=== PATIENT | female | born 1980 | race Caucasian/White ===

== ENCOUNTER 2021-03-27 00:29 | Emergency (ER) | payer OTHER ==
[~2021-03-27] VITALS: Ht 162 cm; Wt 80.0 kg
[~2021-03-27 00:29] MED LIST: CLOMID; LOPE2TAB48 PO; ONDA-42 SL; OSLT75C PO
--- NOTE | 2021-03-27 01:29 | ED Lower Extremity ---
General Chief Complaint: Lower Extremity Stated Complaint: RT ANKLE PAIN Nursing Triage Note: TO ED VIA POV AND W/C TO ROOM 7 WITH C/O RIGHT ANKLE PAIN AFTER TRIPPING DOWN STEPS IN GARAGE AND TURNING ANKLE. PT PRESENTS WITH RIGHT ANKLE CHENG WRAPPED AND ICE PACK. Source: patient History of Present Illness Date Seen by Provider: Mar 27, 2021 Time Seen by Provider: 01:05 Initial Comments PT ARRIVES VIA POV FROM HOME STATES AROUND 2330 TONIGHT, SHE WAS GOING DOWN 2 STEPS INTO GARAGE--GETTING READY TO GO TO WORK--AND TWISTED RIGHT ANKLE/INVERSION-TYPE INJURY WAS WEARING FLAT, THIN SOLED, FABRIC MULES DID NOT HAVE ANY OTHER INJURIES FROM THE INCIDENT NO PARESTHESIAS OR MOTOR DEFICITS HAD MINOR SPRAIN TO THIS ANKLE 6 MONTHS AGO, NO PROBLEMS SINCE THEN ARRIVES WITH ANKLE WRAPPED WITH AN CHENG WRAP AND ICE PACK IN PLACE HAS NOT TAKEN ANYTHING FOR PAIN LMP 2 1/2 WEEKS AGO. NORMAL. NO CONTROL. DENIES POSSIBILITY OF . PCP: DR. FRASER Allergies and Home Medications Allergies Coded Allergies: codeine phosphate (Unverified Allergy, Unknown, 09/06/13) propoxyphene napsylate (Unverified Adverse Reaction, Unknown, 09/06/13) Patient Home Medication List Home Medication List Reviewed: Yes Loperamide Hcl (Ultra A-D) 2 Mg Tablet, 2 MG PO UD Prescribed by: SVETA POSEY on 09/06/13 1540 Naproxen (Naproxen) 500 Mg Tablet.dr, 500 MG PO BID Prescribed by: RAUL SORENSEN on 03/27/21 0203 Ondansetron Hcl (Zofran Oral Dissolve) 4 Mg Tab, 4-8 MG SL Q4H Prescribed by: SVETA POSEY on 09/06/13 1540 [Clomid] , (Reported) Entered as Reported by: TIFFANIE FISH on 09/06/13 1357 Review of Systems Constitutional: no symptoms reported Musculoskeletal: see HPI Skin: no symptoms reported Psychiatric/Neurological: No Symptoms Reported Past Cprwwgk-Qabqig-Stvsnz Hx Patient Social History Tobacco Use?: No Substance use?: No Alcohol Use?: No Immunizations Up To Date COVID19 Vaccine [employer] Rug [employer]ter: MODERNA Past Medical History Surgery/Hospitalization HX: ANXIETY DEPRESSION HIGH CHOLESTEROL Surgeries: No Respiratory: Yes Asthma Cardiac: Yes High Cholesterol Neurological: No : No Genitourinary: No Gastrointestinal: No Musculoskeletal: No Endocrine: No HEENT: No Cancer: No Psychosocial: Yes Anxiety, Depression Integumentary: No Blood Disorders: No Physical Exam Vital Signs Vital Signs - First Documented 03/27/21 00:48 Temp 36.4 Pulse 86 Resp 16 B/P (MAP) 122/72 (89) Pulse Ox 98 O2 Delivery Room Air Capillary Refill : Less Than 3 Seconds Height, Weight, BMI Height: 5'3.00" Weight: 155lbs. oz. 70.976443oi; 30.00 BMI Method:Stated General Appearance: WD/WN, no apparent distress Legs: right leg normal inspection Knees: right knee normal inspection Ankles: right ankle other (TENDERNESS AND SLIGHT SWELLING ALL AROUND ANKLE--ESPECIALLY ANTERIORLY AND AROUND LATERAL MALLEOLUS. ) Feet: right foot other (TENDERNESS TO MID FOOT--BOTH TO ARCH AND SOLE OF FOOT WELL DORSAL ASPECT OF FOOT. DISTAL MOTOR/SENSORY/VASCULAR INTACT. NO BRUISING. NO DEFORMITY) Neurologic/Tendon: normal sensation, normal motor functions, normal tendon functions Neurologic/Psychiatric: no motor/sensory deficits, alert, normal mood/affect Skin: normal color, warm/dry; No ecchymosis Procedures/Interventions Splinting and Joint Reduction : Cheng wrap: Yes Immobilizers: Step Light Walker s/m/lg Progress/Results/Core Measures Results/Orders My Orders Orders - RAUL SORENSEN DO Foot, Right, 3 View (03/27/21 01:09) Ankle, Right, 3 Views (03/27/21 01:09) Steplite (03/27/21 01:55) Rx-Naproxen (Rx-Naprosyn) (03/27/21 01:55) Cheng Bandage (03/27/21 02:00) Vital Signs/I&O 03/27/21 00:48 Temp 36.4 Pulse 86 Resp 16 B/P (MAP) 122/72 (89) Pulse Ox 98 O2 Delivery Room Air Blood Pressure Mean: 89 Diagnostic Imaging Comments XRAYS RIGHT FOOT AND ANKLE--NO ACUTE PROCESS, PENDING RADIOLOGIST REVIEW Reviewed: Reviewed by Me Departure Impression Primary Impression: RIGHT ANKLE AND FOOT SPRAIN Disposition: 01 HOME, SELF-CARE Condition: Stable Departure-Patient Inst. Decision time for Depature: 02:00 Referrals: LORETO FRASER MD (PCP/Family) Primary Care Physician Patient Instructions: Ankle Sprain (DC), How to Use an Elastic Bandage, Walking Boot Add. Discharge Instructions: ICE TO AREA AT 20 MINUTE INTERVALS ELEVATE FOOT MUCH POSSIBLE CHENG WRAP AND BOOT NEEDED FOR COMFORT FOLLOW UP WITH YOUR DR IN 1 WEEK IF NO BETTER All discharge instructions reviewed with patient and/or family. Voiced understan jen. Scripts Naproxen (Naproxen) 500 Mg Tablet.dr 500 MG PO BID, #20 TAB Prov: RAUL SORENSEN DO 03/27/21 Work/School Note: Work Release Form Date Seen in the Emergency Department: Mar 27, 2021 Return to Work: Mar 27, 2021 Other Restrictions Listed Below: LIMITED STANDING X 1 WEEK RAUL SORENSEN DO Mar 27, 2021 01:28
[2021-03-27] MEDS ORDERED: RX-NAPROXEN (NAPROSYN) 250 MG TAB PPK#4 PO STA (01:55)
[2021-03-27] MEDS ORDERED: NAPR500T8 PO (02:03)
[2021-03-27 02:08] VITALS: BP 122/72
--- NOTE | 2021-03-27 03:44 | Diagnostic Imaging Report ---
INDICATION: Ankle pain EXAMINATION: Right ankle 03/27/2021 3 views of the ankle FINDINGS: There is no evidence for an acute fracture or dislocation. The joint spaces are well maintained. There is no significant soft tissue swelling. IMPRESSION: No acute process. Of note, a tiny density is seen along the midfoot laterally on the frontal view only. If there is focal pain to this region, dedicated imaging of the foot recommended. Dictated by: Dictated on workstation # [id number]
--- NOTE | 2021-03-27 03:45 | Diagnostic Imaging Report ---
INDICATION: Fall, pain. EXAMINATION: Right foot 03/27/2021 FINDINGS: 3 views of the foot. There is a small density seen at the base of the 5th metatarsal between the metatarsal and cuboid on the oblique view. This could represent a small avulsion fracture fragment versus a small os peroneum. Correlate for point tenderness. The remaining osseous structures appear intact. IMPRESSION: 1. Tiny density near the base of the 5th metatarsal nonspecific; see above discussion and correlate for point tenderness. Dictated by: Dictated on workstation # [id number]
== END 2021-03-27 02:08 | disposition home or self-care (01) ==
LOC: EDUNIT# 00:29 → ER 00:35
DX: S93.401A Sprain of unspecified ligament of right ankle, initial encounter (principal); S93.601A Unspecified sprain of right foot, initial encounter; X50.1XXA Overexertion from prolonged static or awkward postures, initial encounter; Y92.094 Garage of other non-institutional residence as the place of occurrence of the external cause
CPT/HCPCS: 73610; 73630; L2114

== ENCOUNTER 2021-12-25 03:33 | Emergency (ER) | payer BC, OTHER ==
[~2021-12-25] VITALS: Ht 163 cm; Wt 81.6 kg
[~2021-12-25 03:33] MED LIST changes: +NAPR500T8 PO
[2021-12-25] MEDS ORDERED: DEXT10CA18 (03:52)
[2021-12-25] MEDS ORDERED: CETI10TA49 PO (03:52)
[2021-12-25] MEDS ORDERED: ESCI20TA39 (03:52)
[2021-12-25 03:56] LABS: BILIRUBIN,URINE NEGATIVE (NEGATIVE); CLARITY,URINE SL CLOUDY; COLOR,URINE YELLOW; GLUCOSE, URINE (UA) NEGATIVE (NEGATIVE); KETONES,URINE NEGATIVE (NEGATIVE); NITRITE,URINE NEGATIVE (NEGATIVE); PH,URINE 5.5 (5-9); PROTEIN,URINE NEGATIVE (NEGATIVE)
[2021-12-25 03:57] LABS: BACTERIA,URINE LARGE /HPF; LEUKOCYTE ESTERASE ,URINE NEGATIVE (NEGATIVE); RBC,URINE 50-100 /HPF
--- NOTE | 2021-12-25 03:58 | ED Abdominal Pain ---
General Chief Complaint: Abdominal/GI Problems Stated Complaint: SEVERE ABD PAIN Source of Information: Patient History of Present Illness Date Seen by Provider: Dec 25, 2021 Time Seen by Provider: 03:45 Initial Comments PT ARRIVES VIA POV FROM HOME WOKE UP AT 0200 TO GO TO BATHROOM AND HAD SUPRAPUBIC PAIN, SLIGHT DISCOMFORT ON URINATION--THOUGHT SHE MIGHT BE GETTING A UTI, BUT NEVER HAD ANY PAIN LIKE THIS BEFORE SINCE 314, PAIN HAS BECOME SEVERE AND IS NOW IN RLQ--SHARP PAIN HAS HAD NAUSEA/VOMITED X 1 NORMAL BM TODAY NO FEVER NO HISTORY OF SIMILAR NO PRIOR ABDOMINAL SURGERIES NO GI//BUSINESS CONTINUITY SPECIALIST PROBLEMS LMP 2-3 WEEKS AGO, NORMAL. NO CONTROL. PCP: WAS DR. FRASER, UNTIL HIS RECENT , AND IS NOW ESTABLISHING WITH DR. COOPER Allergies and Home Medications Allergies Coded Allergies: codeine phosphate (Unverified Allergy, Unknown, 09/06/13) propoxyphene napsylate (Unverified Adverse Reaction, Unknown, 09/06/13) Patient Home Medication List Home Medication List Reviewed: Yes Cetirizine HCl (Zyrtec) 10 Mg Tablet, 10 MG PO, (Reported) Entered as Reported by: PETROS RENAE on 12/25/21351 Last Action: New Order Ciprofloxacin HCl (Ciprofloxacin HCl) 500 Mg Tablet, 500 MG PO BID Prescribed by: RAUL SORENSEN on 12/25/21612 Last Action: New Order Dextroamphetamine/Amphetamine (Dextroamp-Amphet ER 10 mg Cap) 10 Mg Cap.er.24h, (Reported) Entered as Reported by: PETROS RENAE on 12/25/21351 Last Action: New Order Escitalopram Oxalate (Escitalopram Oxalate) 20 Mg Tablet, (Reported) Entered as Reported by: PETROS RENAE on 12/25/21351 Last Action: New Order Ketorolac Tromethamine (Ketorolac Tromethamine) 10 Mg Tablet, 10 MG PO Q6H Prescribed by: RAUL SORENSEN on 12/25/21612 Last Action: New Order Ondansetron (Ondansetron Odt) 4 Mg Tab.rapdis, 4 MG PO Q4H Prescribed by: RAUL SORENSEN on 12/25/21612 Last Action: New Order Phenazopyridine HCl (Pyridium) 200 Mg Tablet, 1 TAB PO TID Prescribed by: RAUL SORENSEN on 12/25/21 0613 Last Action: New Order Discontinued Medications Loperamide Hcl (Ultra A-D) 2 Mg Tablet, 2 MG PO UD Discontinued Reason: No Longer Taking Prescribed by: SVETA POSEY on 09/06/13 154 Last Action: Discontinued Naproxen (Naproxen) 500 Mg Tablet.dr, 500 MG PO BID Discontinued Reason: No Longer Taking Prescribed by: RAUL SORENSEN on 03/27/21 0203 Last Action: Discontinued Ondansetron Hcl (Zofran Oral Dissolve) 4 Mg Tab, 4-8 MG SL Q4H Discontinued Reason: No Longer Taking Prescribed by: SVETA POSEY on 09/06/13 154 Last Action: Discontinued [Clomid] , (Reported) Discontinued Reason: No Longer Taking Entered as Reported by: TIFFANIE FISH on 09/06/13 1357 Last Action: Discontinued Review of Systems Review of Systems Constitutional: no symptoms reported Respiratory: No Symptoms Reported Cardiovascular: No Symptoms Reported Gastrointestinal: See HPI, Abdominal Pain, Constipated; Denies Diarrhea; Nausea, Vomiting Genitourinary: See HPI Musculoskeletal: No back pain Skin: no symptoms reported Psychiatric/Neurological: No Symptoms Reported Endocrine: No Symptoms Reported Hematologic/Lymphatic: No Symptoms Reported Past Sobpzzu-Omelyj-Ebsnsc Hx Past Medical History Surgery/Hospitalization HX: ANXIETY DEPRESSION HIGH CHOLESTEROL Surgeries: Yes (WISDOM TEETH) Respiratory: Yes Asthma Cardiac: Yes High Cholesterol Neurological: No Reproductive Disorders: No Female Reproductive Disorders: Denies Genitourinary: No Gastrointestinal: No Musculoskeletal: No Endocrine: No HEENT: No (WISDOM TEETH REMOVED) Cancer: No Psychosocial: Yes Anxiety, Depression Integumentary: No Blood Disorders: No Physical Exam Vital Signs Vital Signs - First Documented 12/25/21 03:38 Temp 36.1 Pulse 91 Resp 22 B/P (MAP) 143/95 (111) Pulse Ox 98 O2 Delivery Room Air Capillary Refill : Height/Weight/BMI Height: 5'3.00" Weight: 155lbs. oz. 70.856654fl; 30.00 BMI Method:Stated General Appearance: other (WALKS AND MOVES SLOWLY, BENT AT WAIST, HOLDING RLQ. MOANING. WHEN LAYING DOWN, UNABLE TO STRAIGHTEN RIGHT LEG DUE TO PAIN---KEEPS RIGHT LEG FLEXED AT HIP AND KNEE. BUT IS THRASHING AROUND ON ER CART ) Neck: normal inspection Respiratory: normal breath sounds, no respiratory distress, no accessory muscle use Cardiovascular: regular rate, rhythm Gastrointestinal: normal bowel sounds, soft; No distended; guarding, rebound, tenderness (MARKED RLQ TENDERNESS, MODERATE SUPRAPUBIC TENDERNESS), other (+ HEEL TAP, + PSOAS, + OBTURATOR, + ROVSING'S) Extremities: normal inspection Back: no CVA tenderness Neurologic/Psychiatric: metal riveter II-XII nml as tested, no motor/sensory deficits, alert, oriented x 3 Skin: normal color (DARK SKINNED), warm/dry, tattoos/piercings Progress/Results/Core Measures Results/Orders Lab Results Laboratory Tests Test 12/25/21 03:45 Range/Units White Blood Count 8.4 4.3-11.0 10^3/uL Red Blood Count 4.73 3.80-5.11 10^6/uL Hemoglobin 13.2 11.5-16.0 g/dL Hematocrit 41 35-52 % Mean Corpuscular Volume 86 80-99 fL Mean Corpuscular Hemoglobin 28 25-34 pg Mean Corpuscular Hemoglobin Concent 32 32-36 g/dL Red Cell Distribution Width 13.2 10.0-14.5 % Platelet Count 302 130-400 10^3/uL Mean Platelet Volume 9.7 9.0-12.2 fL Immature Granulocyte % (Auto) 0 % Neutrophils (%) (Auto) 45 42-75 % Lymphocytes (%) (Auto) 42 12-44 % Monocytes (%) (Auto) 7 0-12 % Eosinophils (%) (Auto) 5 0-10 % Basophils (%) (Auto) 1 0-10 % Neutrophils # (Auto) 3.8 1.8-7.8 10^3/uL Lymphocytes # (Auto) 3.5 1.0-4.0 10^3/uL Monocytes # (Auto) 0.6 0.0-1.0 10^3/uL Eosinophils # (Auto) 0.4 H 0.0-0.3 10^3/uL Basophils # (Auto) 0.0 0.0-0.1 10^3/uL Immature Granulocyte # (Auto) 0.0 0.0-0.1 10^3/uL Urine Color YELLOW Urine Clarity SL CLOUDY Urine pH 5.5 5-9 Urine Specific Pep >=1.030 1.016-1.022 Urine Protein NEGATIVE NEGATIVE Urine Glucose (UA) NEGATIVE NEGATIVE Urine Ketones NEGATIVE NEGATIVE Urine Nitrite NEGATIVE NEGATIVE Urine Bilirubin NEGATIVE NEGATIVE Urine Urobilinogen 0.2 < = 1.0 MG/DL Urine Leukocyte Esterase NEGATIVE NEGATIVE Urine RBC (Auto) 3+ H NEGATIVE Urine RBC 50-100 H /HPF Urine WBC 10-25 H /HPF Urine Squamous Epithelial Cells 5-10 /HPF Urine Crystals NONE /LPF Urine Bacteria LARGE H /HPF Urine Casts NONE /LPF Urine Mucus MODERATE H /LPF Urine Culture Indicated YES Sodium Level 143 135-145 MMOL/L Potassium Level 3.5 L 3.6-5.0 MMOL/L Chloride Level 106 98-107 MMOL/L Carbon Dioxide Level 23 21-32 MMOL/L Anion Gap 14 5-14 MMOL/L Blood Urea Nitrogen 8 7-18 MG/DL Creatinine 0.85 0.60-1.30 MG/DL Estimat Glomerular Filtration Rate 89 BUN/Creatinine Ratio 9 Glucose Level 136 H 70-105 MG/DL Calcium Level 9.1 8.5-10.1 MG/DL Corrected Calcium 9.1 8.5-10.1 MG/DL Total Bilirubin 0.3 0.1-1.0 MG/DL Aspartate Amino Transf (AST/SGOT) 15 5-34 U/L Alanine Aminotransferase (ALT/SGPT) 18 0-55 U/L Alkaline Phosphatase 44 40-136 U/L Total Protein 6.6 6.4-8.2 GM/DL Albumin 4.0 3.2-4.5 GM/DL Serum Test, Qualitative NEGATIVE NEGATIVE My Orders Orders - RAUL SORENSEN DO Ed Iv/Invasive Line Start (12/25/21 03:47) Urine Bedside (12/25/21 03:47) Cbc With Automated Diff (12/25/21 03:47) Comprehensive Metabolic Panel (12/25/21 03:47) Ua Culture If Indicated (12/25/21 03:47) Ed Iv/Invasive Line Start (12/25/21 03:47) Lactated Ringers (Lr 1000 Ml Iv Solution (12/25/21 04:00) Ondansetron Injection (Zofran Injectio (12/25/21 04:00) Hcg,Qualitative Serum (12/25/21 03:52) Urine Culture (12/25/21 03:45) Ct Abd/Pelvis Wo(Kidney Stone) (12/25/21 03:59) Ketorolac Injection (Toradol Injection) (12/25/21 04:30) Abdomen/Kub 1view (12/25/21 04:17) Medications Given in ED Current Medications Medications Dose Ordered Sig/Rosario Route Start Time Stop Time Status Last Admin Dose Admin Lactated Ringer's 1,000 ml @ 0 mls/hr Q0M ONCE IV 12/25/21 04:00 12/25/21 04:01 DC 12/25/21 03:53 999 MLS/HR Ondansetron HCl 4 mg ONCE ONCE IVP 12/25/21 04:00 12/25/21 04:01 DC 12/25/21 03:53 4 MG Vital Signs/I&O 12/25/21 03:38 Temp 36.1 Pulse 91 Resp 22 B/P (MAP) 143/95 (111) Pulse Ox 98 O2 Delivery Room Air Progress Progress Note : Progress Note GIVEN IV FLUIDS AND ZOFRAN ALL SYMPTOMS COMPLETELY RESOLVED BEFORE TORADOL WAS GIVEN NO SYMPTOMS FOR REMAINDER OF ER STAY Diagnostic Imaging Comments KUB--PER RADIOLOGIST REPORT AT 0557 FINDINGS: KUB shows a moderate amount of stool within ascending and transverse colon. No evidence of impacted stool in the distal colon. Stomach and small bowel are not distended. There is no organomegaly. No pathologic calcifications. No bony abnormalities. IMPRESSION: Moderate stool burden otherwise normal KUB. CT ABDOMEN/PELVIS--PER RADIOLOGIST REPORT AT 0602 FINDINGS: There is a 4 mm calculus in the calyx of the right kidney. There is no hydronephrosis. There is a calculus within the bladder measuring 3 mm. Left kidney and ureter appear normal. Uterus is not enlarged. No pelvic masses. Bowel gas pattern is normal. There is noted a cyst in the left iliac region measuring just over 4 cm likely representing a lymphocele. No adenopathy is seen. The liver, gallbladder and bile ducts are normal. Pancreas and spleen are normal. Adrenal glands are normal. IMPRESSION: 1. 3 mm calculus in the bladder consistent with recently passed stone. 5 mm calculus within the right renal calyx. 2. Cyst in the left iliac region likely representing lymphocele measuring 4 cm. Reviewed: Reviewed by Me Departure Impression Primary Impression: Kidney stone Additional Impression: Urinary tract infection Disposition: 01 HOME, SELF-CARE Condition: Improved Departure-Patient Inst. Decision time for Depature: 06:03 Referrals: EMMANUEL ROBB MD,ALICE Yang MD (PCP/Family) Primary Care Physician Patient Instructions: Kidney Stone, Adult ED, Urinary Tract Infection, Adult (DC) Add. Discharge Instructions: LOTS OF CLEAR LIQUIDS STAIN ALL URINE, RETURN ANY STONES TO DR. ROBB'S OFFICE. FOLLOW UP WITH DR. ROBB THIS WEEK FOR FURTHER CARE, CALL IN THE MORNING TO SCHEDULE APPOINTMENT All discharge instructions reviewed with patient and/or family. Voiced understanding. Scripts Ondansetron (Ondansetron Odt) 4 Mg Tab.rapdis 4 MG PO Q4H for Nausea/Vomiting, #10 TAB Prov: RAUL SORENSEN DO 12/25/21 Ketorolac Tromethamine (Ketorolac Tromethamine) 10 Mg Tablet 10 MG PO Q6H for Pain, #15 TAB Prov: RAUL SORENSEN DO 12/25/21 Ciprofloxacin HCl (Ciprofloxacin HCl) 500 Mg Tablet 500 MG PO BID, #14 TAB Prov: CHAD SORENSENA Gustavo DO 12/25/21 Phenazopyridine HCl (Pyridium) 200 Mg Tablet 1 TAB PO TID, #15 TAB Prov: RAUL SORENSEN DO 12/25/21 RAUL SORENSEN DO Dec 25, 2021 03:58
[2021-12-25 03:59] LABS: BASOPHILS % (AUTO) 1 % (0-10); EOSINOPHILS # (AUTO) 0.4 10^3/uL (0.0-0.3); EOSINOPHILS % (AUTO) 5 % (0-10); HEMATOCRIT 41 % (35-52); HEMOGLOBIN 13.2 g/dL (11.5-16.0); LYMPHOCYTES # (AUTO) 3.5 10^3/uL (1.0-4.0); LYMPHOCYTES % (AUTO) 42 % (12-44); MEAN CORPUSCULAR HEMOGLOBIN 28 pg (25-34); MEAN CORPUSCULAR HGB CONC 32 g/dL (32-36); MEAN CORPUSCULAR VOLUME 86 fL (80-99); MEAN PLATELET VOLUME 9.7 fL (9.0-12.2); MONOCYTES # (AUTO) 0.6 10^3/uL (0.0-1.0); MONOCYTES % (AUTO) 7 % (0-12); NEUTROPHILS # (AUTO) 3.8 10^3/uL (1.8-7.8); NEUTROPHILS % (AUTO) 45 % (42-75); PLATELET COUNT 302 10^3/uL (130-400); WHITE BLOOD COUNT 8.4 10^3/uL (4.3-11.0)
[2021-12-25] MEDS ORDERED: LACTATED RINGERS 1,000 ML IV ONE (04:00)
[2021-12-25] MEDS ORDERED: ONDANSETRON 4 MG/2 ML (SDV) Z0FRAN IVP ONE (04:00)
[2021-12-25 04:05] LABS: POTASSIUM 3.5 MMOL/L (3.6-5.0)
[2021-12-25 04:06] LABS: CALCIUM 9.1 MG/DL (8.5-10.1)
[2021-12-25 04:07] LABS: TOTAL PROTEIN 6.6 GM/DL (6.4-8.2)
[2021-12-25 04:09] LABS: BILIRUBIN,TOTAL 0.3 MG/DL (0.1-1.0)
[2021-12-25 04:11] LABS: CREATININE SERUM 0.85 MG/DL (0.60-1.30)
[2021-12-25] MEDS ORDERED: KETOROLAC 30 MG/ML VIAL IVP ONE (04:30)
--- NOTE | 2021-12-25 05:53 | Diagnostic Imaging Report ---
INDICATION: Abdominal pain. FINDINGS: KUB shows a moderate amount of stool within ascending and transverse colon. No evidence of impacted stool in the distal colon. Stomach and small bowel are not distended. There is no organomegaly. No pathologic calcifications. No bony abnormalities. IMPRESSION: Moderate stool burden otherwise normal KUB. Dictated by: Dictated on workstation # [id number]
--- NOTE | 2021-12-25 05:58 | Diagnostic Imaging Report ---
PROCEDURE: CT urinary tract, rule out kidney stone. TECHNIQUE: Multiple contiguous axial images were obtained through the abdomen and pelvis without the use of intravenous contrast. Auto Exposure Controls were utilized during the CT exam to meet ALARA standards for radiation dose reduction. INDICATION: Right flank pain. FINDINGS: There is a 4 mm calculus in the calyx of the right kidney. There is no hydronephrosis. There is a calculus within the bladder measuring 3 mm. Left kidney and ureter appear normal. Uterus is not enlarged. No pelvic masses. Bowel gas pattern is normal. There is noted a cyst in the left iliac region measuring just over 4 cm likely representing a lymphocele. No adenopathy is seen. The liver, gallbladder and bile ducts are normal. Pancreas and spleen are normal. Adrenal glands are normal. IMPRESSION: 1. 3 mm calculus in the bladder consistent with recently passed stone. 5 mm calculus within the right renal calyx. 2. Cyst in the left iliac region likely representing lymphocele measuring 4 cm. Dictated by: Dictated on workstation # [id number]
[2021-12-25] MEDS ORDERED: PHEN-640 PO ×2 (06:04→06:13)
[2021-12-25] MEDS ORDERED: KETO10TA PO ×2 (06:04→06:13)
[2021-12-25] MEDS ORDERED: ONDA4TAB11 PO ×2 (06:04→06:13)
[2021-12-25] MEDS ORDERED: CIPR500T5 PO ×2 (06:04→06:13)
[2021-12-25 06:14] VITALS: BP 119/82
== END 2021-12-25 06:18 | disposition home or self-care (01) ==
LOC: EDUNIT# 03:33 → ER 03:36
DX: N20.0 Calculus of kidney (principal); N39.0 Urinary tract infection, site not specified
CPT/HCPCS: 36415; 74018; 74176; 80053; 81000; 84703; 85025; 87088